=== PATIENT | female | born 1950 | race Caucasian/White ===

== ENCOUNTER 2024-06-18 07:38 | Day surgery (SDC) | payer BC ==
[~2024-06-18] VITALS: Ht 160 cm; Wt 44.9 kg
[2024-06-18] MEDS ORDERED: MEPERIDINE 100 MG INJ. 100 MG/ML VIAL ONE (07:59)
[2024-06-18] MEDS ORDERED: BENZOCAINE 20% 0.5mL UD SPRAY MM ONE (07:59)
[2024-06-18] MEDS ORDERED: MIDAZOLAM HCL 5 MG/5 ML VIAL ONE (08:00)
[2024-06-18] MEDS ORDERED: fentaNYL CITRATE/PF 100 MCG/2 ML AMP ONE (10:06)
[2024-06-18 10:55] VITALS: O2SAT 99
[2024-06-18] MEDS ORDERED: ONDANSETRON HCL 4 MG/2 ML VIAL ONE (11:13)
[2024-06-18 14:55] VITALS: BP_SYST 119; PULSE 67; RESP 16
== END 2024-06-18 13:10 | disposition home or self-care (01) ==
LOC: SDS 07:38 → SMU 07:39 → SDS 13:10
PROVIDERS: ATTEND Internal Medicine
DX: R63.4 Abnormal weight loss (principal); D12.0 Benign neoplasm of cecum; D12.3 Benign neoplasm of transverse colon; D12.5 Benign neoplasm of sigmoid colon; K29.50 Unspecified chronic gastritis without bleeding; D64.9 Anemia, unspecified; K64.8 Other hemorrhoids; F41.9 Anxiety disorder, unspecified; M19.90 Unspecified osteoarthritis, unspecified site; Z98.890 Other specified postprocedural states; Z79.899 Other long term (current) drug therapy; Z68.1 Body mass index [BMI] 19.9 or less, adult
CPT/HCPCS: 45380; 45385; 43239; 99152; 88305; 88312; 88313; 99153; G0378; J2250; J2405; J3010; J2175